=== PATIENT | female | born 1970 | race African-American/Black ===

== ENCOUNTER 2016-09-27 14:14 | Observation (INO) ==
[2016-09-27 15:34] LABS: BASO% 1.5 % (0.0-0.8); EOS% 1.2 % (0.0-10.0); IMM GRAN# 0.02 X1000 (0.0-0.04); IMM GRAN% 0.2 % (0.0-0.5); LYMPH# 2.69 X1000 (1.2-3.4); LYMPH% 33.5 % (20.5-51.1); MCH 18.7 PG (27-31); MCHC 26.5 g/dL (33-37); MCV 70.7 FL (81-99); MONO# 0.52 X1000 (0.11-0.59); MONO% 6.5 % (1.7-9.3); MPV 10.9 FL (7.4-10.4); NEUT% 57.1 % (42.2-75.2); PLT 328 X1000 (130-400); RBC 2.83 XMIL (4.2-5.4)
[2016-09-27 15:36] LABS: HEMOGLOBIN 5.3 g/dL (12.0-16.0); MANUAL DIFF NEEDED? NO
[2016-09-27 15:44] LABS: INR 1.19 (0.86-1.15); PROTIME 15.4 Seconds (12.1-15.5)
[2016-09-27 15:45] LABS: PTT PL 31.1 Seconds (22.6-43.9)
[2016-09-27 15:49] LABS: AGAP 11; ALBUMIN 4.3 g/dL (3.5-5.0); ALKALINE PHOSPHATASE 67 U/L (32-104); BUN 16 mg/dL (8-22); CALCIUM 8.6 mg/dL (8.8-10.2); CHLORIDE 105 mmol/L (98-107); COSMO 280; GOT 38 U/L (10-30); GPT 29 U/L (10-36); POTASSIUM 3.8 mmol/L (3.5-5.1); SODIUM 139 mmol/L (136-145); TCO2 23 mmol/L (25-35); TOTAL PROTEIN 7.5 g/dL (6.3-8.3)
[2016-09-27] MEDS ORDERED: NS 1,000 ML IV ONE (16:03)
[2016-09-27 16:18] LABS: IRON SATURATION 2 %; TIBC 442 ug/dL; TOTAL IRON 10 ug/dL (49-151); UNBOUND IRON 432 ug/dL (112-346)
[2016-09-27] MEDS ORDERED: PROVERA PO ONE (19:12)
[2016-09-28 06:41] LABS: HEMATOCRIT 24.7 % (37.0-47.0); HEMOGLOBIN 7.1 g/dL (12.0-16.0); MCH 21.1 PG (27-31); MCHC 28.7 g/dL (33-37); MCV 73.5 FL (81-99); MPV 11.5 FL (7.4-10.4); RBC 3.36 XMIL (4.2-5.4)
[2016-09-28 06:43] LABS: AGAP 10; ALKALINE PHOSPHATASE 63 U/L (32-104); BUN 13 mg/dL (8-22); CALCIUM 8.1 mg/dL (8.8-10.2); CHLORIDE 106 mmol/L (98-107); COSMO 276; GOT 22 U/L (10-30); GPT 26 U/L (10-36); POTASSIUM 3.8 mmol/L (3.5-5.1); SODIUM 138 mmol/L (136-145); TCO2 22 mmol/L (25-35); TOTAL PROTEIN 6.9 g/dL (6.3-8.3)
[2016-09-28] MEDS ORDERED: LOTENSIN PO SCH (09:00)
[2016-09-28] MEDS ORDERED: PROVERA PO SCH (09:00)
[2016-09-28] MEDS ORDERED: BYSTOLIC PO SCH (09:00)
[2016-09-28] MEDS ORDERED: LASIX IV SCH (11:15)
[2016-09-28] MEDS ORDERED: TYLENOL PO PRN (12:58)
--- NOTE | 2016-09-28 13:45 | HISTORY AND PHYSICAL ---
HISTORY OF PRESENT ILLNESS: The patient notes that she has been having trouble with heavy menstrual bleeding off and on for the past 2 years. She actually had a procedure done 3 years ago and was improved until approximately 2 years ago, when the bleeding started. Over the last 6 months, notes that her bleeding has become extremely heavy, passing clots, off and on for 2 weeks at a time. She has not followed up with [facility]. She actually saw her primary care last week and had blood drawn for a routine physical, and was called and told that her hemoglobin and hematocrit were low, and was told to come to the hospital. ALLERGIES: Penicillin. MEDICATIONS: Bystolic 10 mg once a day, Lotensin 10 mg once a day. PAST MEDICAL HISTORY: Hypertension, dysfunctional uterine bleeding. REVIEW OF SYSTEMS: The patient denies any chest pain or palpitations. States she has been tired, fatigued, and notes that has been continually worsening. She, in fact, actually on the date of admission had gone to the store prior to being told her hemoglobin and hematocrit were low. States that she got short of breath with ambulating. States that she had to stop and sit down while she was in [facility] secondary to the shortness of breath, but denied any chest pain or palpitations. Denied any syncopal-type episode. Denies any blood in her stool or urine. Denies any skin rashes, weight loss, or weight gain. FAMILY HISTORY: Noncontributory. SOCIAL HISTORY: Patient lives at home. She has recently moved here from [place]. Her primary care is in [place]. Denies smoking or drinking alcohol. MEDICATIONS: She does take medication for blood pressure. PHYSICAL EXAMINATION: VITAL SIGNS: Temperature 98 degrees, pulse 84, respiratory rate 20, blood pressure 161/80. GENERAL: Patient is awake, alert. She is currently in no respiratory distress. She is pleasant to talk with. Speech is regular. Memory is intact. Sitting on the bed, watching television. She is alert and oriented x3. HEENT: Normocephalic. NECK: Supple. CARDIOVASCULAR: Regular rate. CHEST: Relatively clear. ABDOMEN: Soft, nontender. EXTREMITIES: Moves all extremities. NEUROLOGIC: No focal changes. SKIN: Warm and dry. No rashes. LABORATORIES: WBC 8, hemoglobin and hematocrit 5 and 20, MCV 70, MCH is 18. CMP is essentially normal with a percent iron saturation of 2, iron level low at 10, AST mildly elevated at 38. ASSESSMENT: 1. Anemia, iron deficiency, secondary to dysfunctional uterine bleeding. 2. Dysfunctional uterine bleeding. 3. Hypertension. 4. Fatigue. 5. Dyspnea on exertion secondary to her acute anemia. PLAN: We will admit patient to the hospital, type, cross, and transfuse. I certainly do not feel as though she is a surgical emergency at the moment. We will continue to follow. She does not smoke. Therefore, we will start her on Provera. We will continue to follow her blood pressures. Further orders as needed. cc: Matthew Sutherland MD
[2016-09-28] MEDS ORDERED: BENADRYL PO ONE (13:49)
[2016-09-28 18:17] VITALS: BP 172/96
--- NOTE | 2016-09-29 06:06 | DISCHARGE SUMMARY ---
ADMISSION DATE: 09/27/2016 DISCHARGE DATE: 09/28/2016 DISCHARGE DIAGNOSES: 1. Dysfunctional uterine bleeding causing anemia. 2. Acute on chronic anemia. Hemoglobin and hematocrit are much improved after 4 units of blood. Her hemoglobin and hematocrit were 7 and 24 after 2 units. Although patient is still having dysfunctional uterine bleeding, I certainly would expect that her hemoglobin and hematocrit would continue to drop. Therefore, she was transfused. 3. Hypertension. The patient's blood pressure was noted to be elevated in the hospital, although she has not yet taken her blood pressure medication. Discussed with her that she needs to continue to follow with her primary care physician as I expect that she is going to need to continue to increase her benazepril and Bystolic. CONSULTATIONS: None. PROCEDURES: None. HOSPITAL COURSE: Patient is a 46-year-old female who admitted as noted on the HPI. Typed, crossed, and transfused. She thankfully had an uneventful hospital course. She was able to ambulate in the oneal without any difficulty on discharge. She was having no chest pain, no palpitations. No syncope. DISPOSITION: The patient will be discharged home. She will continue her lisinopril and Bystolic. She will not take any aspirin, Aleve, ibuprofen, or NSAID type products for the current time. She will be discharged home on Provera 10 mg 3 times a day for the next three days, then once a day. Discussed with her that she needs to follow up with [facility] her choice. The patient states she understands. TIME SPENT: Thirty-five minutes were spent on discharge planning and instructions. cc: Matthew Sutherland MD
--- NOTE | 2016-10-08 01:25 | PROVIDER DOCUMENTATION ---
This chart was entered by Macie Lynch Scribe, acting as scribe for Gabe Thomas MD. HPI-General Adult - General Chief Complaint: Abnormal Lab[s] Stated Complaint: "HEMOGLOBIN 5.5" Time Seen by Provider: 09/27/16 15:38 Source: patient Allergies/Adverse Reactions: Patient Allergies Allergy/AdvReac Type Severity Reaction Status Date / Time Penicillins Allergy RASH Verified 09/27/16 14:24 Home Medications: Home Medication List Medication Instructions Recorded Confirmed Last Taken Type BENAZEpril [Lotensin] 10 mg PO DAILY 09/27/16 09/27/16 Unknown History Cefdinir 1 dose PO DAILY 09/27/16 09/27/16 Unknown History Nebivolol HCl [Bystolic] 10 mg PO DAILY 09/27/16 09/27/16 Unknown History Medroxyprogesterone [Provera] 10 mg PO DAILY #33 tablet 09/28/16 Unknown Rx - History of Present Illness -Gen Adult Nature of Presenting Problems: Pt is 46 y/o F presents to the ED with low HGB. Pt states had blood draw at work and found out her HGB was low and was told to come to ED. Pt denies pain. Pt states she has been passing blood clots for 2 weeks. Location of Pain/Injury: reports: none Pain Radiation: reports: no radiation Quality of Pain: reports: none Onset/Duration: reports: other (2 weeks) Timing: reports: still present Context/Activities at Onset: reports: light activity Modifying Factors: improves with: nothing Associated Symptoms: reports: denies symptoms Similar Symptoms Previously?: Yes Recently seen or treated by another doctor?: Yes Review of Systems - Adult - REVIEW OF SYSTEMS - ADULT Constitutional: reports: no symptoms reported Eyes: reports: no symptoms reported Ears, Nose, Mouth & Throat: reports: no symptoms reported Cardiovascular: reports: no symptoms reported Respiratory: reports: no symptoms reported Gastrointestinal: reports: no symptoms reported Genitourinary: reports: no symptoms reported Musculoskeletal: reports: no symptoms reported Integumentary: reports: no symptoms reported Neurological: reports: no symptoms reported Psychiatric: reports: no symptoms reported Endocrine: reports: no symptoms reported Hematologic/Lymphatic: reports: no symptoms reported Allergic/Immunologic: reports: no symptoms reported All Other Systems: Reviewed and Negative Past History - Adult - PAST MEDICAL HISTORY-ADULT Review of Records: reports: Nursing Assessment Review, Medications Reviewed, Social history reviewed & non-contributory. Major Childhood Illnesses: reports: denies history Cardiovascular: reports: denies history Respiratory: reports: denies history Gastrointestinal: reports: denies history Obstetrical/Gynecological: reports: denies history Genitourinary: reports: denies history Musculoskeletal: reports: denies history Neurological: reports: denies history Endocrine/Immune: reports: denies history Other Conditions: reports: denies history - PRIOR SURGERIES/PROCEDURES Surgical/Procedure History: reports: reviewed, not pertinent - IMMUNIZATION STATUS Childhood Immunizations: See Nurse Assessment Flu Vaccine: See Nurse Assessment - FAMILY HISTORY Family History: reviewed, not pertinent - SOCIAL HISTORY Smoking: denies Substance Use: denies Living Situation: family Physical Exam-General - PHYSICAL EXAM-ADULT Initial Vital Signs Reviewed: Yes - CONSTITUTIONAL General Appearance: appears well, alert, no apparent distress - EYES Eyes: PERRL/EOMI, pale conjunctivae - HEAD, EARS, NOSE, MOUTH & THROAT HENMT: normocephalic/atraumatic, moist mucous membranes, normal ENT inspection, TMs normal, pharynx normal - NECK Neck: non-tender, full range of motion, supple, normal inspection - RESPIRATORY Respiratory: chest non-tender, lungs clear, normal breath sounds, no pleuratic chest pain, no respiratory distress, no accessory muscle use - CARDIOVASCULAR Cardiovascular: normal peripheral pulses, regular rate, rhythm, no edema, no gallop, no JVD, no murmur - GASTROINTESTINAL (ABDOMEN) Abdominal Exam: normal bowel sounds, non tender, soft, no organomegaly, no pulsatile mass - LYMPHATIC Lymphatic: no adenopathy - MUSCULOSKELETAL Back Exam: normal inspection, no CVA tenderness, no vertebral tenderness Extremity: normal range of motion, non-tender, normal gait, normal inspection, no pedal edema, no calf tenderness, normal capillary refill - SKIN Integumentary: normal color, normal turgor, warm/dry - NEUROLOGIC Neurologic: grossly normal - PSYCHIATRIC Psych/Mental Status: normal mood/affect, oriented x 3 Progress - PLAN OF CARE/RESULTS Progress/Plan/Lab Results: Vital Signs - 8 hr 09/27/16 14:17 Temperature 98 F Pulse Rate 88 Respiratory Rate 18 Blood Pressure 178/116 O2 Sat by Pulse Oximetry 100 Laboratory Results - last 24 hr 09/27/16 15:19 WBC 8.02 RBC 2.83 L Hgb 5.3 L* Hct 20.0 L MCV 70.7 L MCH 18.7 L MCHC 26.5 L RDW Std Deviation 17.4 H Plt Count 328 MPV 10.9 H Immature Gran % (Auto) 0.2 Neut % (Auto) 57.1 Lymph % (Auto) 33.5 Jewell % (Auto) 6.5 Eos % (Auto) 1.2 Baso % (Auto) 1.5 H Immature Gran # (Auto) 0.02 Neut # (Auto) 4.57 Lymph # (Auto) 2.69 Jewell # (Auto) 0.52 Eos # (Auto) 0.10 Baso # (Auto) 0.12 Segmented Neutrophils Cancelled Band Neutrophils Cancelled Lymphocytes Cancelled Monocytes Cancelled Eosinophils Cancelled Basophils Cancelled Metamyelocytes Cancelled Myelocytes Cancelled Promyelocytes Cancelled Nucleated RBCs Cancelled Atypical Lymphocytes Cancelled Blast Cells Cancelled Hypochromia Cancelled Vacuolization Cancelled Toxic Granulation Cancelled Dohle Bodies Cancelled Large Platelets Cancelled Polychromasia Cancelled Poikilocytosis Cancelled Basophilic Stippling Cancelled Anisocytosis Cancelled Microcytosis Cancelled Macrocytosis Cancelled Spherocytes Cancelled Sickle Cells Cancelled Target Cells Cancelled Ovalocytes Cancelled Stomatocytes Cancelled Purcell-Galisteo Bodies Cancelled Marked Tree Cells Cancelled Unidentified Cells Cancelled Schistocytes Cancelled Orders Category Date Time Status Saline Loc NOW Care 09/27/16 14:45 Active CBC WITH DIFF [HEME] Stat Lab 09/27/16 15:19 Completed COMPREHENSIVE METABOLIC PANEL [CHEM] Stat Lab 09/27/16 15:19 Received [address]IME WITH INR PL [COAG] Stat Lab 09/27/16 15:[address] [COAG] Stat Lab 09/27/16 15:19 Received TYPE & SCREEN [BBK] Stat Lab 09/27/16 15:19 Received Result Diagrams: 09/28/16 05:50 09/28/16 05:50 - CONSULTS/PCP/HOSPITALIST Notification #1 *Consult/PCP/Hospitalist*: Dr. Sutherland Time Discussed: 15:40 Reason/Comments: Dr. Thomas consulted with Dr. Sutherland about admit of Pt Consult Disposition: Admit Departure - Departure Time of Disposition Decision: 15:41 DIAGNOSIS: Iron deficiency anemia, Vaginal bleeding Disposition: ADMITTED INPATIENT 09 Certified Medical Emergency: Emergent Condition: Stable - Critical Care Note This patient required my direct & personal management of CC.: No This chart was documented by the indicated scribe, (Macie Lynch Scribe) and accurately reflects the services I performed and decisions made by me, Gabe Thomas MD, as attested by the provider's signature.
== END 2016-09-28 20:05 | disposition home or self-care (01) ==
LOC: P.ED 14:14 → P.MEDSURG 14:15 → INTOOBSV 14:15
PROVIDERS: ATTEND Family Medicine

== ENCOUNTER 2016-12-18 01:56 | Inpatient (IN) ==
[2016-12-16 07:23] LABS: URINE SOURCE CLEAN CATCH
[2016-12-16 07:42] LABS: BILIRUBIN URINE NEGATIVE (NEGATIVE); BLOOD URINE 3+ (NEGATIVE); GLUCOSE URINE NEGATIVE (NEGATIVE); LEUKOCYTES URINE NEGATIVE (NEGATIVE); NITRITE URINE NEGATIVE (NEGATIVE); PROTEIN URINE NEGATIVE (NEGATIVE); UROBILINOGEN URINE NORMAL
[2016-12-16 07:43] LABS: CLARITY CLEAR (CLEAR); COLOR YELLOW; URINE MICROSCOPIC NEEDED? YES
[2016-12-16 07:46] LABS: URINE EPITHELIAL CELLS <10 /HPF (<10); URINE WBC <10 /HPF (<10)
[2016-12-16 07:56] LABS: BASO% 1.3 % (0.0-0.8); EOS# 0.16 X1000 (0.0-0.7); EOS% 3.5 % (0.0-10.0); HEMOGLOBIN 8.1 g/dL (12.0-16.0); LYMPH# 1.43 X1000 (1.2-3.4); LYMPH% 31.7 % (20.5-51.1); MANUAL DIFF NEEDED? YES; MCH 22.9 PG (27-31); MCHC 28.9 g/dL (33-37); MCV 79.3 FL (81-99); MONO# 0.26 X1000 (0.11-0.59); MONO% 5.8 % (1.7-9.3); MPV 10.7 FL (7.4-10.4); NEUT% 57.7 % (42.2-75.2); PLT 184 X1000 (130-400); RBC 3.53 XMIL (4.2-5.4)
[2016-12-16 09:39] LABS: EOS 3 % (1-10); LYMPHS 30 % (21-51); MONO 2 % (1-9)
[2016-12-18] MEDS ORDERED: FENTANYL ONE (07:33)
[2016-12-18] MEDS ORDERED: DIPRIVAN 1% ONE (07:33)
[2016-12-18] MEDS ORDERED: SODIUM CHLORIDE 0.9% 10 ML ONE (07:58)
[2016-12-18] MEDS ORDERED: NORCURON ONE (07:58)
[2016-12-18] MEDS ORDERED: KEFZOL 1 GM/D5W 1 GM/50 ML IVPB IV ONE (08:00)
[2016-12-18] MEDS ORDERED: KEFZOL 1 GM/D5W 1 GM/50 ML IVPB ONE (08:27)
[2016-12-18] MEDS ORDERED: VERSED ONE (08:50)
[2016-12-18] MEDS ORDERED: ZOFRAN ONE ×2 (09:15→09:16)
[2016-12-18] MEDS ORDERED: ROBINUL ONE ×2 (09:16→10:08)
[2016-12-18 09:36] LABS: URINE MICROSCOPIC NEEDED? NO; URINE SOURCE CATH
[2016-12-18] MEDS ORDERED: TORADOL ONE (09:51)
[2016-12-18 10:07] LABS: BILIRUBIN URINE NEGATIVE (NEGATIVE); BLOOD URINE NEGATIVE (NEGATIVE); CLARITY CLEAR (CLEAR); COLOR YELLOW; GLUCOSE URINE NEGATIVE (NEGATIVE); LEUKOCYTES URINE NEGATIVE (NEGATIVE); NITRITE URINE NEGATIVE (NEGATIVE); PROTEIN URINE NEGATIVE (NEGATIVE); UROBILINOGEN URINE NORMAL
[2016-12-18] MEDS ORDERED: NEOSTIGMINE ONE (10:08)
[2016-12-18] MEDS ORDERED: XYLOCAINE-MPF 2% ONE (10:25)
[2016-12-18] MEDS ORDERED: MORPHINE ONE (10:26)
[2016-12-18] MEDS ORDERED: NORCO-5 PO PRN (10:37)
[2016-12-18] MEDS ORDERED: ZOFRAN IV PRN ×2 (10:37→11:36)
[2016-12-18] MEDS ORDERED: SODIUM CHLORIDE 0.9% INJ PRN ×2 (10:37→11:36)
[2016-12-18] MEDS ORDERED: DULCOLAX PR PRN (10:37)
[2016-12-18] MEDS ORDERED: MYLICON PO PRN (10:37)
[2016-12-18] MEDS ORDERED: PHENERGAN IV PRN ×2 (10:37→11:36)
[2016-12-18] MEDS: DILAUDID ONE ×3 (10:52→11:15)
[2016-12-18] MEDS ORDERED: LR 1,000 ML ONE (11:02)
[2016-12-18] MEDS ORDERED: APRESOLINE ONE (11:02)
[2016-12-18] MEDS: APRESOLINE ONE ×2 (11:04→11:14)
--- NOTE | 2016-12-18 11:31 | OPERATIVE NOTE ---
PROCEDURE DATE: 12/18/2016 PREOPERATIVE DIAGNOSES: 1. Menorrhagia. 2. Anemia. 3. Fibroid uterus. 4. Failed conservative therapy. POSTOPERATIVE DIAGNOSES: 1. Menorrhagia. 2. Anemia. 3. Fibroid uterus. 4. Failed conservative therapy. PRINCIPAL PROCEDURE: Total abdominal hysterectomy, bilateral salpingectomy. SURGEON: Massimo Black MD. INSPECTOR EYEGLASS: Priti. ANESTHESIA: Brin. FINDINGS: A 6 cm uterine fibroid, uterus 16 weeks size, normal bilateral ovaries and fallopian tubes. COMPLICATIONS: None apparent. ESTIMATED BLOOD LOSS: 275 mL. SPECIMENS REMOVED: Uterus, bilateral fallopian tubes. OPERATIVE COURSE: After the patient was identified and consents were reviewed, general anesthesia was administered without complications. The patient was placed on the operative table in the dorsal supine position. Abdomen was prepped and draped in a normal sterile fashion. A Pfannenstiel skin incision was made and carried through to the underlying layer of fascia. It was extended laterally with Correa scissors. The superior aspect of the fascial incision was grasped with Sandy clamps, elevated, and the underlying rectus muscles were dissected off with Correa scissors. Inferior portion was performed in a similar manner. The rectus muscles were then identified and in the midline. The peritoneum was identified and entered bluntly. A O'Dennis-O'Mckenna retractor was then used to achieve adequate exposure of the operative field. A Angeli clamp was used to grasp the uterine fundus. LigaSure was then used to ligate the fallopian tubes as well as the utero-ovarian arteries bilaterally. Broad ligament was then ligated using LigaSure to the level of the uterine arteries. Metzenbaum scissors were then used to create a bladder flap. This was extended digitally. Straight Savita clamps were then used to suture ligate the uterine vessels as well as the uterosacral ligaments to the level of the cervix. Curved Savita clamps were then used to the level of the cervix and the uterus was removed in its entirety. Several [id number] Vicryl sutures were then used to close the vaginal cuff. Adequate hemostasis was noted throughout. The peritoneum was then reapproximated using 3-0 Vicryl. The fascia then closed with 0 Vicryl. The subcutaneous tissue were closed with plain gut suture. The skin was closed with 4-0 Biosyn as well as Dermabond. Patient tolerated the procedure well. She was taken to the recovery room afterwards in stable condition. cc: Massimo Black MD
[2016-12-18] MEDS ORDERED: DILAUDID PCA VIAL ONE (11:34)
[2016-12-18] MEDS ORDERED: DILAUDID ONE (11:34)
[2016-12-18] MEDS ORDERED: DILAUDID PCA VIAL IV PRN (11:36)
[2016-12-18] MEDS ORDERED: NARCAN IV PRN (11:36)
[2016-12-18] MEDS: TORADOL IV SCH ×2 (16:25→21:50)
[2016-12-18] MEDS: LR 1,000 ML IV SCH (18:44)
[2016-12-18] MEDS: BENADRYL IV PRN (20:29)
[2016-12-18] MEDS: PERIDEX MT SCH (20:29)
[2016-12-18] MEDS: COLACE PO SCH (20:29)
[2016-12-19] MEDS: LR 1,000 ML IV SCH (01:58)
[2016-12-19] MEDS: BENADRYL IV PRN ×2 (01:59→07:56)
[2016-12-19] MEDS: TORADOL IV SCH ×2 (04:07→10:11)
[2016-12-19 06:45] LABS: HEMATOCRIT 26.5 % (37.0-47.0); HEMOGLOBIN 7.4 g/dL (12.0-16.0); MCH 22.4 PG (27-31); MCHC 27.9 g/dL (33-37); MCV 80.1 FL (81-99); MPV 12.2 FL (7.4-10.4); RBC 3.31 XMIL (4.2-5.4)
[2016-12-19] MEDS: PERIDEX MT SCH ×3 (07:55→20:49)
[2016-12-19] MEDS: COLACE PO SCH ×2 (07:56→20:49)
[2016-12-19] MEDS ORDERED: PRILOSEC PO SCH (09:00)
[2016-12-19] MEDS: LOTENSIN PO SCH (10:09)
[2016-12-19] MEDS: BYSTOLIC PO SCH (10:10)
[2016-12-19] MEDS ORDERED: D/C PCA XX ONE (14:00)
[2016-12-19] MEDS: NORCO-10 PO PRN (20:49)
[2016-12-20] MEDS: NORCO-10 PO PRN ×3 (00:55→08:55)
[2016-12-20] MEDS: COLACE PO SCH (08:45)
[2016-12-20] MEDS: BYSTOLIC PO SCH (08:46)
[2016-12-20] MEDS: LOTENSIN PO SCH (08:47)
[2016-12-20 09:04] VITALS: BP 141/77
--- NOTE | 2016-12-20 16:53 | DISCHARGE SUMMARY ---
ADMISSION DATE: 12/18/2016 DISCHARGE DATE: 12/20/2016 ADMITTING DIAGNOSES: 1. Menorrhagia. 2. Anemia. 3. Uterine leiomyomata. POSTOPERATIVE DIAGNOSES: 1. Menorrhagia. 2. Anemia. 3. Uterine leiomyomata. PRINCIPAL PROCEDURES: Total abdominal hysterectomy with bilateral salpingectomy. SUMMARY: Gloria Almaguer is a 46-year-old with menorrhagia and secondary anemia. She has had several hospitalizations for transfusions. Ablation therapy was attempted but failed to relieve her symptoms. She was therefore admitted to the hospital by Dr. Black and abdominal hysterectomy and prophylactic bilateral salpingectomy was performed. The intraoperative findings were uterine leiomyomata. Final pathology report is pending. There were no intraoperative complications following the surgery. Patient did well. She remained afebrile and all vital signs were stable. She had an admission hemoglobin and hematocrit of 8.1/28 with discharge hemoglobin and hematocrit being 7.4/26.5. On the day of discharge, cardiac and pulmonary examinations were normal. Bowel and bladder function was normal. Incision was clean and dry. She was having scant vaginal bleeding. Ms. Almaguer will be discharged today and we will see her back in the office in 1 week. Routine discharge instructions, activity limitations, and precautions were discussed. She will continue her antihypertensives and she was given prescriptions for Motrin 800 mg, [place] 10 mg #30, and Ambien 10 mg #20. We will re-evaluate her blood count over the next few weeks and make a decision about iron therapy so I am somewhat reluctant to give her iron replacement right now. She has had multiple transfusions and I am concerned about iron overload. cc: MD Massimo Ly MD
== END 2016-12-20 11:50 | disposition home or self-care (01) ==
LOC: SURHOLD 01:56 → P.WC 06:35 → EDSTATUS 08:30
PROVIDERS: ADMIT Obstetrics & Gynecology; ATTEND Obstetrics & Gynecology